=== PATIENT | male | born 1970 | race Caucasian/White ===

== ENCOUNTER 2018-02-12 13:19 | Emergency (ER) | payer OTHER ==
[~2018-02-12] VITALS: Ht 185.4 cm; Wt 91.0 kg
[2018-02-12] MEDS ORDERED: LOSA50TA7 PO (13:28)
[2018-02-12] MEDS ORDERED: HYDROmorphone 1 MG/ML, 1ML IM ONE (14:30)
[2018-02-12] MEDS ORDERED: HYDROmorphone 2 MG/ML, 1ML ONE (14:33)
== END 2018-02-12 15:58 | disposition home or self-care (01) ==
LOC: ED 15:34
DX: R04.0 Epistaxis (principal); R05 Cough
CPT/HCPCS: 30901; 71046; 96372; 99284; J1170

== ENCOUNTER → 2018-03-14 | Outpatient (CLI) | payer OTHER ==
[~2018-03-14] MED LIST: CETI10TA24 PO; LOSA1TAB19 PO; LOSA50TA7 PO; MULT-658 PO; OMEP20TA62 PO; VITA1CAP PO
[2018-03-14 13:40] LABS: ALANINE AMINOTRANSFERASE 91 U/L (12-78); ALBUMIN 4.6 g/dL (3.4-5.0); ANION GAP 7 mmol/L (5-15); CALCIUM 9.5 mg/dL (8.5-10.1); CHLORIDE 102 mmol/L (98-107); CREATININE 1.01 mg/dL (0.7-1.3)
[2018-03-14 13:43] LABS: ALKALINE PHOSPHATASE 75 U/L (45-117); BILIRUBIN,TOTAL 1.3 mg/dL (0.2-1.0); TOTAL PROTEIN 8.5 g/dL (6.4-8.2)
== END | disposition home or self-care (01) ==
LOC: STAR 12:38
PROVIDERS: ATTEND Otolaryngology
DX: Z01.818 Encounter for other preprocedural examination (principal); J34.3 Hypertrophy of nasal turbinates; R04.0 Epistaxis; J34.89 Other specified disorders of nose and nasal sinuses
CPT/HCPCS: 36415; 80053

== ENCOUNTER 2018-03-18 12:14 | Day surgery (SDC) | payer OTHER ==
[2018-03-14 13:37] VITALS: BP 161/94
[~2018-03-18] VITALS: Ht 185.4 cm; Wt 88.5 kg
[2018-03-18] MEDS ORDERED: LACTATED RINGERS 1,000 ML IV SCH (13:24)
[2018-03-18] MEDS ORDERED: FENTANYL PF 250 MCG/5ML ONE (13:52)
[2018-03-18] MEDS ORDERED: MIDAZOLAM 1 MG/ML, 2ML ONE (13:52)
[2018-03-18] MEDS ORDERED: ROCURONIUM 10MG/ML,5ML ONE (13:53)
[2018-03-18] MEDS ORDERED: DEXAMETHASONE 4 MG/ML, 1ML ONE ×2 (13:53)
[2018-03-18] MEDS ORDERED: SUCCINYLCHOLINE 20 MG/ML, 10ML ONE ×2 (13:53)
[2018-03-18] MEDS ORDERED: PROPOFOL 10 MG/ML, 20ML ONE (13:53)
[2018-03-18] MEDS ORDERED: BUPIVACAINE/PF-EPI 0.5% 1:200K ONE (14:00)
[2018-03-18] MEDS ORDERED: COCAINE TOPICAL SOLN 4%, 4ML ONE (14:01)
[2018-03-18] MEDS ORDERED: OXYMETAZOLINE NASAL SPRAY 0.05%, 15ML ONE (14:01)
[2018-03-18] MEDS ORDERED: NEOSPORIN OINT. PKT 1 PACKET ONE (14:01)
[2018-03-18] MEDS ORDERED: BACITRACIN OINT 500U/GM, 15 GM ONE (14:01)
[2018-03-18] MEDS ORDERED: HALOPERIDOL 5 MG/ML IV PRN (15:00)
[2018-03-18] MEDS ORDERED: MEPERIDINE/PF 25MG/0.5ML IVPush PRN (15:00)
[2018-03-18] MEDS ORDERED: MORPHINE SULFATE 4 MG/ML, 1ML IVPush PRN (15:00)
[2018-03-18] MEDS ORDERED: EPHEDRINE 50 MG/ML, 1ML IVPush PRN (15:00)
[2018-03-18] MEDS ORDERED: ONDANSETRON ODT 8 MG PO PRN (15:00)
[2018-03-18] MEDS ORDERED: PROMETHAZINE 12.5 MG SUPP PR PRN (15:00)
[2018-03-18] MEDS ORDERED: LABETALOL 5MG/ML, 20ML IV PRN (15:00)
[2018-03-18] MEDS ORDERED: ONDANSETRON 2MG/ML, 2ML IV PRN (15:00)
[2018-03-18] MEDS ORDERED: PROMETHAZINE 25 MG/ML, 1ML IV PRN (15:00)
[2018-03-18] MEDS ORDERED: ALBUTEROL SULFATE 2.5 MG/3 ML NPPB PRN (15:00)
[2018-03-18] MEDS ORDERED: HYDROmorphone 1 MG/ML, 1ML IV PRN (15:00)
[2018-03-18] MEDS ORDERED: MIDAZOLAM 1 MG/ML, 2ML IV PRN (15:00)
[2018-03-18] MEDS ORDERED: FENTANYL PF 100 MCG/2ML IV PRN (15:00)
[2018-03-18] MEDS ORDERED: LORazepam 2 MG/ML, 1ML IVPush PRN (15:00)
[2018-03-18] MEDS ORDERED: hydrALAzine 20 MG/ML, 1ML IV PRN (15:00)
[2018-03-18] MEDS ORDERED: OXYcodone 5 MG/5 ML ORAL.SOL UDC ONE ×2 (15:34→15:45)
[2018-03-18] MEDS: OXYcodone 5 MG/5 ML ORAL.SOL UDC PO PRN ×2 (15:35→15:46)
[2018-03-18] MEDS ORDERED: FENTANYL PF 100 MCG/2ML ONE (15:45)
== END 2018-03-18 17:10 | disposition home or self-care (01) ==
LOC: OUT 12:14
PROVIDERS: ATTEND Otolaryngology
DX: J34.3 Hypertrophy of nasal turbinates (principal); J34.89 Other specified disorders of nose and nasal sinuses; I10 Essential (primary) hypertension
CPT/HCPCS: 30140; 30630; J0330; J1100; J2250; J2704; J3010; J7120

== ENCOUNTER 2019-09-03 04:36 | Emergency (ER) | payer OTHER ==
[~2019-09-03] VITALS: Ht 182.9 cm; Wt 90.0 kg
[~2019-09-03 04:36] MED LIST changes: -CETI10TA24 PO; +CETI10TA26 PO; +LOSA50TA14 PO; -LOSA50TA7 PO
[2019-09-03] MEDS ORDERED: PHENYLEPHRINE NASAL 1%, 15ML SPRAY ONE ×2 (04:50→04:56)
[2019-09-03] MEDS ORDERED: PHENYLEPHRINE 10 MG/ML ONE (04:55)
--- NOTE | 2019-09-03 05:08 | NUR ---
BIB [facility] THAT STARTED THIS MORNING AROUND 0230, WOKE HIM UP. HX OF ARTERIAL EPISTAXIS AND SURGICAL INTERVENTIONS IN THE PAST. C/O DIZZINESS. PT ATTACHED TO ALL MONITORS. CALL LIGHT WITHIN REACH
--- NOTE | 2019-09-03 05:09 | NUR ---
FILI DYSON IN TO PLACED RHINO ROCKET IN RIGHT NOSTRIL
[2019-09-03 05:10] LABS: BASOPHILS # (AUTO) 0.03 x10^3/uL (0-0.1); BASOPHILS % (AUTO) 1 % (0-1); EOSINOPHILS # (AUTO) 0.14 x10^3/uL (0-0.4); EOSINOPHILS % (AUTO) 3 % (1-7); LYMPHOCYTES # (AUTO) 1.45 x10^3/uL (1-3.4); LYMPHOCYTES % (AUTO) 35 % (22-44); MD NO; MEAN CORPUSCULAR HEMOGLOBIN 35.6 pg (27.5-34.5); MEAN CORPUSCULAR HGB CONC 35.4 g/dL (33.2-36.2); MEAN CORPUSCULAR VOLUME 100.5 fL (81-97); MEAN PLATELET VOLUME 8.3 fL (7.4-10.4); MONOCYTES # (AUTO) 0.37 x10^3/uL (0.2-0.8); MONOCYTES % (AUTO) 9 % (2-9); NEUTROPHILS # (AUTO) 2.17 x10^3/uL (1.8-6.8); NEUTROPHILS % (AUTO) 52 % (42-75); PLATELET COUNT 110 x10^3/uL (130-400); RED BLOOD COUNT 3.49 x10^6/uL (4.38-5.82); RED CELL DISTRIBUTION WIDTH 12.9 % (9.4-14.8)
[2019-09-03 05:12] LABS: ALBUMIN 3.7 g/dL (3.4-5.0); ANION GAP 9 mmol/L (5-15); CALCIUM 9.1 mg/dL (8.5-10.1); CHLORIDE 106 mmol/L (98-107)
[2019-09-03 05:18] LABS: ALANINE AMINOTRANSFERASE 43 U/L (12-78); ALKALINE PHOSPHATASE 91 U/L (45-117); CREATININE 1.58 mg/dL (0.7-1.3); TOTAL PROTEIN 7.5 g/dL (6.4-8.2)
[2019-09-03 05:43] VITALS: BP 136/82
[2019-09-03] MEDS ORDERED: LACTATED RINGERS 1,000 ML IVBOLUS ONE (06:00)
== END 2019-09-03 06:56 | disposition home or self-care (01) ==
LOC: ED 05:45
DX: R04.0 Epistaxis (principal); N28.9 Disorder of kidney and ureter, unspecified; I10 Essential (primary) hypertension; E87.2 Acidosis; I44.7 Left bundle-branch block, unspecified
CPT/HCPCS: 30901; 36415; 80053; 85025; 93005; 99284; J7120